=== PATIENT | male | born 1945 | race Caucasian/White ===

== ENCOUNTER → 2020-08-16 | Outpatient (CLI) | payer OTHER | LOC: SJCVC 14:31 | PROVIDERS: ATTEND Internal Medicine | DX: R94.31 Abnormal electrocardiogram [ECG] [EKG] (principal); I13.0 Hypertensive heart and chronic kidney disease with heart failure and stage 1 through stage 4 chronic kidney disease, or unspecified chronic kidney disease; I50.22 Chronic systolic (congestive) heart failure; N18.32 Chronic kidney disease, stage 3b; I25.5 Ischemic cardiomyopathy; I48.11 Longstanding persistent atrial fibrillation; E78.2 Mixed hyperlipidemia; I25.10 Atherosclerotic heart disease of native coronary artery without angina pectoris; M10.9 Gout, unspecified; R09.89 Other specified symptoms and signs involving the circulatory and respiratory systems; Z95.1 Presence of aortocoronary bypass graft; Z95.810 Presence of automatic (implantable) cardiac defibrillator; Z95.5 Presence of coronary angioplasty implant and graft; Z79.01 Long term (current) use of anticoagulants; Z79.899 Other long term (current) drug therapy ==

== ENCOUNTER 2020-12-18 06:26 | Inpatient (IN) | payer OTHER ==
[~2020-12-18] VITALS: Ht 180.3 cm; Wt 105.3 kg
[2020-12-18 06:27] VITALS: BP 121/59
[2020-12-18 06:51] LABS: ABSOLUTE NEUTROPHILS 8.6 thou/uL (1.4-8.2); BASOPHILS 0.9 % (0.0-2.0); EOSINOPHILS 0.7 % (0.0-3.0); HEMATOCRIT 29.9 % (42.0-52.0); HEMOGLOBIN 9.8 gm/dL (14.0-18.0); LYMPHOCYTES 6.1 % (24.0-44.0); MCH 28.8 pg (26.0-34.0); MCHC 32.7 g/dL (28.0-37.0); MONOCYTES 6.1 % (1.0-8.0); PLATELET COUNT 247 thou/uL (150-400); POLYS 86.2 % (36.0-66.0); RDW 17.5 % (10.5-14.5)
[2020-12-18] MEDS ORDERED: ELIQUIS5 MG PO (06:51)
[2020-12-18] MEDS ORDERED: FUROSEMIDE 40 M40 M1 PO (06:51)
[2020-12-18] MEDS ORDERED: CARVEDILOL12.5 MG PO (06:51)
[2020-12-18] MEDS ORDERED: EZETIMIBE-SIMV1 EAC1 PO (06:51)
[2020-12-18 07:00] LABS: CALCIUM 8.6 mg/dL (8.5-10.1); CREATININE 1.5 mg/dL (0.7-1.3); POTASSIUM 4.4 mmol/L (3.5-5.1)
[2020-12-18 07:04] LABS: APTT 39.9 Seconds (24.5-32.8); INR 1.19; PROTIME 12.9 Seconds (10.5-12.1)
[2020-12-18 07:06] LABS: ALBUMIN 2.7 g/dL (3.4-5.0); TOTAL BILIRUBIN 0.6 mg/dL (0.2-1.0); TOTAL PROTEIN 7.9 g/dL (6.4-8.2)
[2020-12-18 10:19] VITALS: BP 116/63
[2020-12-18 10:53] VITALS: BP 126/80
[2020-12-18 11:52] VITALS: BP 127/71
[2020-12-18 15:30] VITALS: BP 111/60
--- NOTE | 2020-12-18 17:42 | NUR ---
PT RECEIVED PER CART FROM THE ER ALERT AND IN SOME DISCOMFORT FROM REDDENED AND SORE JOINTS. STEROID MEDICINE TOOK EFFECT AND PT STATES HIS JOINTS FEEL SO MUCH BETTER. HE WAS ABLE TO WORK W/ THERAPY AND WALK W/ WALKER. UP IN THE CHAIR FOR SEVERAL HOURS. DAUGHTERS IN TO VISIT. PT EATING AND DRINKING WELL. IN GOOD SPIRITS.
[2020-12-18 18:56] VITALS: BP 110/65
--- NOTE | 2020-12-19 01:45 | NUR ---
PT WAS SITTING UP IN THE RECLINER IN HIS ROOM AT SHIFT CHANGE.PT REQUESTED FOR HIS HOME HS MEDS,[employer] NOTIFIED ORDER NOTED AND CARRIED OUT.PT UP WITH ASSIST X1/GB AND WALKER TO THE TOILET.LESS REDNESS TO HIS KNEES AND HANDS.HS SNACK PROVIDED.PT ABLE O MAKE HER NEEDS KNOWN.CALL LIGHT WITHIN REACH.
[2020-12-19 04:30] VITALS: BP 138/82
[2020-12-19 07:10] VITALS: BP 132/80
--- NOTE | 2020-12-19 10:34 | NUR ---
Assumed care of pt at 0700. Pt a&ox4. Denies pain. Pt walked the [place] with physical therapy this am. Pt states he is feeling better today. Call light within reach. Fall precautions in place. Will continue to monitor.
--- NOTE | 2020-12-19 15:37 | NUR ---
INITIAL ASSESSMENT: Received consult. NICK reviewed chart and spoke with nursing and attending physician. Pt was admitted from home due to arthritis. PT/OT evals have been completed. Recommendation made for pt to go to a SNF. NICK met with pt at bedside. Introduced role of NICK. Pt is alert/orientated x 4. Pt reports he lives at home with his dtr, Mirna. Prior to admission, pt has been independent with ADLs. Pt does have a rollator walker, SC and BSC. Pt reports that his arthritis has become worse over the past several weeks and he has required almost total care. No hx of services or post-acute placement. Pt sees Yina Fierro for primary care at [facility]. Pt moved to from [place] earlier this year. NICK discussed discharge options for pt. Pt is agreeable with referral to a facility of his daughters' choice. Pt's two dtrs both work at [facility]. Pt gave consent to NICK to speak with his dtr, Minoo, for discharge planning. Request for referral to be sent to [facility]. NICK faxed referral and notified [facility] liaison. Anticipate pt will be ready for discharge in 1-2 days. NICK is following to assist as needed with discharge planning.
[2020-12-19 17:42] VITALS: BP 130/71
[2020-12-19 20:15] VITALS: BP 125/73
--- NOTE | 2020-12-20 04:13 | NUR ---
PT WAS IN A GOOD MOOD AT START OF SHIFT.PT WAS OBSERVED SITTING UP IN THE RECLINER IN HIS ROOM WATCHING TV AT SHIFT CHANGE.HS SNACK PROVIDED PER PT'S REQUEST.NO BM NOTED SO FAR THIS SHIFT.URINAL AT BEDSIDE.PT ABLE TO MAKE HIS NEEDS KNOWN.CALL LIGHT WITHIN REACH.
[2020-12-20 08:46] VITALS: BP 133/83
--- NOTE | 2020-12-20 10:17 | NUR ---
Assumed care of pt at 0700. Pt a&ox4. C/o pain in bilateral hand. Prn pain medications administered. Up SBA with gait-belt and walker. Call light within reach. Fall precautions in place. Will continue to monitor.
[2020-12-20 10:40] LABS: HEMATOCRIT 28.9 % (42.0-52.0); MCH 27.5 pg (26.0-34.0); MCHC 31.2 g/dL (28.0-37.0); MCV 88.2 fL (80.0-100.0); RBC 3.28 mil/uL (4.50-6.00); RDW 17.6 % (10.5-14.5); WBC 14.9 thou/uL (4.0-11.0)
[2020-12-20 10:54] LABS: % SATURATION 12 % (20-39); CALCIUM 8.7 mg/dL (8.5-10.1); CREATININE 1.6 mg/dL (0.7-1.3); IRON 34 ug/dL (65-175); MAGNESIUM 2.2 mg/dL (1.8-2.4); TIBC 285 ug/dL (250-450)
[2020-12-20 10:58] LABS: POTASSIUM 5.8 mmol/L (3.5-5.1)
[2020-12-20 11:21] LABS: FOLIC ACID 11.3 ng/mL (8.6-58.9)
--- NOTE | 2020-12-20 16:47 | NUR ---
Dc to [facility] held today due to labs. All parties anticipating dc to SNF at [facility] of OP tomorrow. Pt's dtrs updated. Chart copy in progress.
[2020-12-20 17:04] VITALS: BP 133/85
--- NOTE | 2020-12-20 17:47 | NUR ---
Pt transferred to unit from PACU. Pt a&ox4. Incision site well approximated with sutures. J.P drain in place. Pain controlled. IVF infusing. 2L O2 post-op. Call light within reach. Will give report to cherry RICH.
[2020-12-20 19:06] VITALS: BP 127/80
[2020-12-20 20:22] LABS: URINE BILIRUBIN NEGATIVE (Negative); URINE BLOOD NEGATIVE (Negative); URINE CLARITY CLEAR; URINE COLOR YELLOW; URINE GLUCOSE-RANDOM* NEGATIVE (Negative); URINE KETONES NEGATIVE (Negative); URINE LEUKOCYTES-REFLEX NEGATIVE (Negative); URINE NITRITE-REFLEX NEGATIVE (Negative); URINE PROTEIN (DIPSTICK) TRACE (Negative); URINE UROBILINOGEN 0.2 E.U./dl (0.2-1.0)
--- NOTE | 2020-12-20 23:18 | NUR ---
PT WAS OBSERVED SITTING UP IN THE RECLINER IN HIS ROOM WATCHING TV AT SHIFT CHANGE.PT WAS FRUSTRATED AT START OF SHIFT DUE TO CONSTANT URINATION. PT EDUCATED ON THE NEED TO HAVE THE IVF.PT FELT BETTER LATER AND WAS VERY APOLOGETIC.PT ON HIS BED AT THIS TIME WATCHING TV.URINAL AT BEDSIDE.CALL LIGHT WITHIN REACH.
[2020-12-21 04:03] VITALS: BP 149/93
[2020-12-21 06:44] LABS: HEMATOCRIT 27.4 % (42.0-52.0); HEMOGLOBIN 8.9 gm/dL (14.0-18.0); MCH 28.4 pg (26.0-34.0); MCHC 32.4 g/dL (28.0-37.0); MCV 87.6 fL (80.0-100.0); RBC 3.13 mil/uL (4.50-6.00); RDW 17.5 % (10.5-14.5); WBC 11.5 thou/uL (4.0-11.0)
[2020-12-21 07:06] LABS: CALCIUM 8.3 mg/dL (8.5-10.1); CREATININE 1.5 mg/dL (0.7-1.3); POTASSIUM 5.2 mmol/L (3.5-5.1)
[2020-12-21 07:46] VITALS: BP 149/95
--- NOTE | 2020-12-21 09:22 | NUR ---
Assumed care of pt at 0700. Pt a&ox4. IVF infusing. SBA to toilet with walker and gait-belt. Possible d/c to facility today. Call light within reach. Fall precautions in place. Will continue to monitor.
--- NOTE | 2020-12-21 11:13 | NUR ---
Pt dcing to SNF at [facility] of OP today at 3:30 via their w/c van service. Chart copy in progress and nursing to call report. Pt/dtrs updated on dc plan for today and all agreeable. DC orders to be faxed by cm once completed.
[2020-12-21] MEDS ORDERED: PREDNISONE 20 M20 M1 PO (13:49)
[2020-12-21] MEDS ORDERED: ACETAMINOPHEN325 M1 PO (13:49)
== END 2020-12-21 16:07 | DRG 545 ==
LOC: ER 06:26 → EROBS 09:37 → 4S 09:37
PROVIDERS: Emergency Medicine; Internal Medicine; ADMIT Hospitalist; ATTEND Hospitalist
DX: M06.9 Rheumatoid arthritis, unspecified (principal); N17.0 Acute kidney failure with tubular necrosis; M15.9 Polyosteoarthritis, unspecified; Z20.822 Contact with and (suspected) exposure to COVID-19; M10.00 Idiopathic gout, unspecified site; I50.9 Heart failure, unspecified; I25.10 Atherosclerotic heart disease of native coronary artery without angina pectoris; R53.81 Other malaise; I48.0 Paroxysmal atrial fibrillation; E87.5 Hyperkalemia; Z95.0 Presence of cardiac pacemaker; Z87.891 Personal history of nicotine dependence
CPT/HCPCS: 10195